=== PATIENT | male | born 1945 | race Caucasian/White ===

== ENCOUNTER 2024-09-01 10:36 | Outpatient (AMB) | payer MEDICARE, SELFPAY ==
--- NOTE | 2024-09-01 10:42 | MHC.OFFVIS ---
Vital Signs 09/01/24 10:43 Height 5 ft 7.48 in Weight 210 lb 8.663 oz BMI 32.5 BP 134/90 H Blood Pressure Location Rt brachial Position Sitting Pulse 55 Pulse Source Pulse Oximeter Pulse Oximetry (%) 97 Oxygen Delivery Method Room Air Intake Visit Reasons: gloria Allergies No Known Allergies Allergy (Verified 09/01/24 10:47) HPI Comments Details: The patient is here for pulmonary evaluation. The patient is a 79-year-old gentleman with known obstructive sleep apnea. He has had a history of sleep apnea for many years. He has been very adherent to the therapy. The CPAP therapy has been affecting beneficial. However, he has been struggling with the mask. Recently did get a an N30 I mask. Although is leaking from the sides. It seems to be the wrong size since he has a small wide fitting. I did have an N30 I air touch which may seal the little better because the different material. This comes in a medium. He did try for the lot comfortable. Therefore he will start using it. As far as his settings his current settings 6-13 cm to be effective for him. His AHI is 1.7. Seems like he needs a higher pressure just to improve that AHI little bit better but he does not want to increase the pressures at this time which is reasonable. In addition to that he has complaining of any earache. Feels like he is hearing an echo from his left ear. I did locate seems to be a bulging tympanic membrane with some fluid and some erythema. Looks to be infected. Also some erythema of the external canal. Therefore I will send some drops him some antibiotics but he needs to call his primary care and has some degree of follow-up for his ear this case likely component of otitis media and otitis externa. [facility] Medical History (Updated 09/01/24 @ 18:55 by Ajay Adkins MD) GLORIA on CPAP Social History (Updated 09/01/24 @ 10:46 by Jaylin Patton CMA) Patient Tobacco Use Status: Former Tobacco user Review of Systems Const Denies fever(s) Eyes Reports no additional complaints ENT Reports hearing loss Card Denies chest pain Resp Reports no additional complaints and Denies wheezing GI Reports no additional complaints Musc Reports no additional complaints Skin/Breast Denies rash Neuro Reports no additional complaints Too/Lymph Reports no additional complaints Aller/Immun Denies wheezing Physical Exam Vital Signs: Last Vital Signs Pulse 55 09/01/24 10:43 BP 134/90 H 09/01/24 10:43 Pulse Ox 97 09/01/24 10:43 Oxygen Delivery Method Room Air 09/01/24 10:43 BMI result Body Mass Index 32.5 Const General: comfortable HEENT Ears: TM abnormal (left) bulging, wth effusion and with fluid behind the TM Neck Neck: Yes supple Chest Chest palpation & inspection: normal inspection of the chest Resp Effort & Inspection: normal respiratory effort Auscultation: clear to auscultation bilaterally Cardio Heart sounds: S1 normal heart sound present and S2 normal heart sound present GI Palpation (GI): Soft to palpation Skin General skin exam: no rashes or lesions noted Extrem General: Yes no clubbing, cyanosis or edema Assessment & Plan Assessment & Plan (1) GLORIA on CPAP: Code(s): G47.33 - Obstructive sleep apnea (adult) (pediatric) Category: Medical (2) Otitis media: Code(s): H66.90 - Otitis media, unspecified, unspecified ear Category: Medical Qualifiers: Otitis media type: unspecified Chronicity: acute Qualified Code(s): H66.90 - Otitis media, unspecified, unspecified ear Plan continue APAP 6-13, trial N30 i med airtouch start Augmentin ear drops Needs to f/u with PCP or urgent case if no bettter re: otitis F/U 6 months Medications: New amoxicillin-pot clavulanate 875-125 mg 1 tab PO BID 20 tabs 0RF 10 days spaspmvo-xqlkja-UD-thonzonium 3.3-3-10-0.5 mg/mL (Cortisporin-TC) 4 drps otic (ear) left TID 10 mL 3RF 10 days Coding Level of Care Code New Pt Level 4 (71453) Diagnoses GLORIA on CPAP G47.33 Acute otitis media, unspecified otitis media type H66.90 Otitis media type: unspecified Chronicity: acute Time Spent (min) 30
[2024-09-01 10:43] VITALS: BP 134/90; PULSE 55; O2SAT 97; BMI 32.5
--- OUTSIDE RECORDS SUMMARY | 2024-09-01 11:17 | XMS_ITS ---
Author Organization [employer] Address [address] [place] [address] Care Team Providers Care Plastics Engineer Name Role Phone MYRA SANDS Primary Care Provider Allergies Allergen (clinical drug ingredient) Drug/Non Drug Allergy documented on EMR Reaction Allergy Type Onset Date Status levothyroxine Levothyroxine Sodium Unknown Drug Allergy Active REASON FOR VISIT CPE Medications Medication SIG (Take, Route, Frequency, Duration) Notes Start Date End Date Status Benzonatate 100 MG 1 capsule as needed Orally Three times a day for 7 days 04/16/2024 Not-Taking Paxlovid (300/100) 20 x 150 MG & 10 x 100MG 3 tablets Orally Twice a day for 5 days 04/16/2024 Not-Taking predniSONE 20 MG 1 tablet Orally Once a day for 7 days 03/16/2024 Not-Taking Atorvastatin Calcium 20 MG 1 tablet Orally Once a day for 90 days Active Dexcom G7 Sensor - as directed for 30 days 024 Not-Taking metFORMIN HCl 1000 MG TAKE 1 TABLET BY M OUTH TWICE DAILY WITH MEALS Orally twice a day for 90 days Active FUR FARMER Thyroid 60 MG TAKE 1 AND 1/2 TABLE TS BY MOUTH ON AN EMPTY STOMACH ONCE DAILY for 90 Active FreeStyle Veronique 14 Day Sensor - USE DIRECTED CHANGE EVERY 14 DAYS for 28 Not-Taking Losartan Potassium 25 mg 1 tablet Orally Once a day for 30 days 06/17/2024 Active Losartan Potassium 50 MG 1 tablet Orally Once a day for 90 days Active FreeStyle Veronique 14 Day [place] - as directed Use to monitor blood sugars daily E11.8 09/10/2020 Not-Taking Ibuprofen 400 MG 1 tablet with food o r milk as needed Orally every 6 hrs Not-Taking Gabapentin 300 MG 1 capsule Orally Onc e a day for 30 days 03/24/2024 Not-Taking Gabapentin 100 MG 2 capsule Orally Onc e a day for 30 days 03/24/2024 Not-Taking Losartan Potassium 50 MG 1 tablet Orally Once a day for 30 days Not-Taking Social History Tobacco Use: Social History Observation Description Date Details (start date - stop date) Never Smoker NA - NA Tobacco Use/Smoking Question Answer Notes Are you a nonsmoker Alcohol Screen (Audit-C) Question Answer Notes Did you have a drink contain ing alcohol in the past year? Yes How often did you have a dri nk containing alcohol in the past year? 2 to 4 times a month (2 points) How many drinks did you have on a typical day when you were drinking in the past year? 1 or 2 drinks (0 point) Points 2 Interpretation Negative Vital Signs Temperature 96 degrees Fahrenheit 06/17/2024 Oximetry 95 % 06/17/2024 Heart Rate 45 /min 06/17/2024 Blood pressure systolic 142 mm Hg 06/17/20 24 Blood pressure diastolic 80 mm Hg 024 Weight 216 lbs 06/17/2024 BMI 33.35 kg/m2 06/17/2024 Height 67.48 in 06/17/2024 Encounters Encounter Location Date Provider Diagnosis [facility] [address] [id number] 06/17/2024 MYRA SANDS Encounter for genera l adult medical examination without abnormal findings Z00.00 ; Diabetes mellitus due to underlying condition with diabetic neuropathy, unspecified E08.40 ; Essential (primary) hypertension I10 ; Hypothyroidism, unspecified E03.9 ; Hyperlipidemia, unspecified E78.5 and Benign prostatic hyperplasia without lower urinary tract symptoms N40.0 Assessments Encounter Date Diagnosis (ICD Code) Assessment Notes Treatment Notes Treatment Clinical Notes Section Notes 06/17/2024 Encounter for general adult medical examination without abnormal findings (ICD-10 - Z00.00) Mr. Tejeda is a 78-year-old gentleman with DM2, hypertension, hyperlipidemia, BPH, hypothyroidism and GLORIA here for annual physical. Plan is as follows: Type II diabetes mellitus. A1c 7.2 Fasting sugars 157. He is on Metformin 1000 MG BID. He has seen an storage architect for the past year. Foot care discussed. check A1c. EKG is normal sinus rhythm at 43 bpm with no acute ST or T wave changes, no bundle-branch blocks, normal interests. Hypertension. His blood pressure is running high in the office today. Cut back on sodium intake. Advised appropriate hydration, cardio exercises and weight loss. Increase Losartan to 75 MG once a day. Advised for BP follow up in 2 weeks. Hyperlipidemia. Last lipid panel within normal limits. Continue Atorvastatin 20 MG OD Hypothyroidism. TSH running high. Continue FUR FARMER Thyroid 60 MG 1 tablet and half and advised to take it first thing in the morning on an empty stomach and repeat TSH and if it is still underactive we will go up on the dose. GLORIA. Stable on current settings Eye screening. He sees his storage architect regularly. Dental screening. He sees dentist regularly. He is Full Code and his Julieth is his HCP Blood work reviewed with patient and questions answered. Screening blood work before next appointment. General health concerns discussed with patient. Scribe services used to formulate this note under HIPAA compliance and under [place] law mandated for scribe services. Patient aware of service. Verbal consent and written consent taken from the patient. Patient understands and verbalizes understanding of the scribes services and all questions answered regarding scribes services. Patient agrees to use of scribes services. 06/17/2024 Diabetes mellitus due to underlying condition with diabetic neuropathy, unspecified (ICD-10 - E08.40) Mr. Tejeda is a 78-year-old gentleman with DM2, hypertension, hyperlipidemia, BPH, hypothyroidism and GLORIA here for annual physical. Plan is as follows: Type II diabetes mellitus. A1c 7.2 Fasting sugars 157. He is on Metformin 1000 MG BID. He has seen an storage architect for the past year. Foot care discussed. check A1c. EKG is normal sinus rhythm at 43 bpm with no acute ST or T wave changes, no bundle-branch blocks, normal interests. Hypertension. His blood pressure is running high in the office today. Cut back on sodium intake. Advised appropriate hydration, cardio exercises and weight loss. Increase Losartan to 75 MG once a day. Advised for BP follow up in 2 weeks. Hyperlipidemia. Last lipid panel within normal limits. Continue Atorvastatin 20 MG OD Hypothyroidism. TSH running high. Continue FUR FARMER Thyroid 60 MG 1 tablet and half and advised to take it first thing in the morning on an empty stomach and repeat TSH and if it is still underactive we will go up on the dose. GLORIA. Stable on current settings Eye screening. He sees his storage architect regularly. Dental screening. He sees dentist regularly. He is Full Code and his Julieth is his HCP Blood work reviewed with patient and questions answered. Screening blood work before next appointment. General health concerns discussed with patient. Scribe services used to formulate this note under HIPAA compliance and under [place] law mandated for scribe services. Patient aware of service. Verbal consent and written consent taken from the patient. Patient understands and verbalizes understanding of the scribes services and all questions answered regarding scribes services. Patient agrees to use of scribes services. 06/17/2024 Essential (primary) hypertension (ICD-10 - I10) Mr. Tejeda is a 78-year-old gentleman with DM2, hypertension, hyperlipidemia, BPH, hypothyroidism and GLORIA here for annual physical. Plan is as follows: Type II diabetes mellitus. A1c 7.2 Fasting sugars 157. He is on Metformin 1000 MG BID. He has seen an storage architect for the past year. Foot care discussed. check A1c. EKG is normal sinus rhythm at 43 bpm with no acute ST or T wave changes, no bundle-branch blocks, normal interests. Hypertension. His blood pressure is running high in the office today. Cut back on sodium intake. Advised appropriate hydration, cardio exercises and weight loss. Increase Losartan to 75 MG once a day. Advised for BP follow up in 2 weeks. Hyperlipidemia. Last lipid panel within normal limits. Continue Atorvastatin 20 MG OD Hypothyroidism. TSH running high. Continue FUR FARMER Thyroid 60 MG 1 tablet and half and advised to take it first thing in the morning on an empty stomach and repeat TSH and if it is still underactive we will go up on the dose. GLORIA. Stable on current settings Eye screening. He sees his storage architect regularly. Dental screening. He sees dentist regularly. He is Full Code and his Julieth is his HCP Blood work reviewed with patient and questions answered. Screening blood work before next appointment. General health concerns discussed with patient. Scribe services used to formulate this note under HIPAA compliance and under [place] law mandated for scribe services. Patient aware of service. Verbal consent and written consent taken from the patient. Patient understands and verbalizes understanding of the scribes services and all questions answered regarding scribes services. Patient agrees to use of scribes services. 06/17/2024 Hypothyroidism, unspecified (ICD-10 - E03.9) Mr. Tejeda is a 78-year-old gentleman with DM2, hypertension, hyperlipidemia, BPH, hypothyroidism and GLORIA here for annual physical. Plan is as follows: Type II diabetes mellitus. A1c 7.2 Fasting sugars 157. He is on Metformin 1000 MG BID. He has seen an storage architect for the past year. Foot care discussed. check A1c. EKG is normal sinus rhythm at 43 bpm with no acute ST or T wave changes, no bundle-branch blocks, normal interests. Hypertension. His blood pressure is running high in the office today. Cut back on sodium intake. Advised appropriate hydration, cardio exercises and weight loss. Increase Losartan to 75 MG once a day. Advised for BP follow up in 2 weeks. Hyperlipidemia. Last lipid panel within normal limits. Continue Atorvastatin 20 MG OD Hypothyroidism. TSH running high. Continue FUR FARMER Thyroid 60 MG 1 tablet and half and advised to take it first thing in the morning on an empty stomach and repeat TSH and if it is still underactive we will go up on the dose. GLORIA. Stable on current settings Eye screening. He sees his storage architect regularly. Dental screening. He sees dentist regularly. He is Full Code and his Julieth is his HCP Blood work reviewed with patient and questions answered. Screening blood work before next appointment. General health concerns discussed with patient. Scribe services used to formulate this note under HIPAA compliance and under [place] law mandated for scribe services. Patient aware of service. Verbal consent and written consent taken from the patient. Patient understands and verbalizes understanding of the scribes services and all questions answered regarding scribes services. Patient agrees to use of scribes services. 06/17/2024 Hyperlipidemia, unspecified (ICD-10 - E78.5) Mr. Tejeda is a 78-year-old gentleman with DM2, hypertension, hyperlipidemia, BPH, hypothyroidism and GLORIA here for annual physical. Plan is as follows: Type II diabetes mellitus. A1c 7.2 Fasting sugars 157. He is on Metformin 1000 MG BID. He has seen an storage architect for the past year. Foot care discussed. check A1c. EKG is normal sinus rhythm at 43 bpm with no acute ST or T wave changes, no bundle-branch blocks, normal interests. Hypertension. His blood pressure is running high in the office today. Cut back on sodium intake. Advised appropriate hydration, cardio exercises and weight loss. Increase Losartan to 75 MG once a day. Advised for BP follow up in 2 weeks. Hyperlipidemia. Last lipid panel within normal limits. Continue Atorvastatin 20 MG OD Hypothyroidism. TSH running high. Continue FUR FARMER Thyroid 60 MG 1 tablet and half and advised to take it first thing in the morning on an empty stomach and repeat TSH and if it is still underactive we will go up on the dose. GLORIA. Stable on current settings Eye screening. He sees his storage architect regularly. Dental screening. He sees dentist regularly. He is Full Code and his Julieth is his HCP Blood work reviewed with patient and questions answered. Screening blood work before next appointment. General health concerns discussed with patient. Scribe services used to formulate this note under HIPAA compliance and under [place] law mandated for scribe services. Patient aware of service. Verbal consent and written consent taken from the patient. Patient understands and verbalizes understanding of the scribes services and all questions answered regarding scribes services. Patient agrees to use of scribes services. 06/17/2024 Benign prostatic hyperplasia without lower urinary tract symptoms (ICD-10 - N40.0) Mr. Tejeda is a 78-year-old gentleman with DM2, hypertension, hyperlipidemia, BPH, hypothyroidism and GLORIA here for annual physical. Plan is as follows: Type II diabetes mellitus. A1c 7.2 Fasting sugars 157. He is on Metformin 1000 MG BID. He has seen an storage architect for the past year. Foot care discussed. check A1c. EKG is normal sinus rhythm at 43 bpm with no acute ST or T wave changes, no bundle-branch blocks, normal interests. Hypertension. His blood pressure is running high in the office today. Cut back on sodium intake. Advised appropriate hydration, cardio exercises and weight loss. Increase Losartan to 75 MG once a day. Advised for BP follow up in 2 weeks. Hyperlipidemia. Last lipid panel within normal limits. Continue Atorvastatin 20 MG OD Hypothyroidism. TSH running high. Continue FUR FARMER Thyroid 60 MG 1 tablet and half and advised to take it first thing in the morning on an empty stomach and repeat TSH and if it is still underactive we will go up on the dose. GLORIA. Stable on current settings Eye screening. He sees his storage architect regularly. Dental screening. He sees dentist regularly. He is Full Code and his Julieth is his HCP Blood work reviewed with patient and questions answered. Screening blood work before next appointment. General health concerns discussed with patient. Scribe services used to formulate this note under HIPAA compliance and under [place] law mandated for scribe services. Patient aware of service. Verbal consent and written consent taken from the patient. Patient understands and verbalizes understanding of the scribes services and all questions answered regarding scribes services. Patient agrees to use of scribes services. Plan Of Treatment Medication Medication Name Sig Start Date Stop Date Notes Losartan Potassium 25 mg 1 tablet Orally Once a day for 30 days 06/17/2024 Next Appt Details Follow Up: 2 Weeks- BP, Reas on: Provider Name:MYRA SANDS , 06/29/2025 10:00:00 AM, [address] [place] [address], [id number], Progress Notes * Juan TEJEDAOB: 7 (78 yo M)Acc No.[id number]:06/17/2024 Progress Notes Patient:?LOBO Ella Provider:?MYRA SANDS MD :1945???Age:78 Y???Sex:Male Farhan e:06/17/2024 Address:[address] [place], [place] [id number] Subjective: * Chief Complaints: * ???CPE * HPI: ???Depression Screening:?PHQ-9?Little interest or pleasure in doing things?Not at all ?Feeling down, depressed, or hopeless?Not at all ?Trouble falling or staying asleep, or sleeping too much?Several days ?Feeling tired or having little energy?Not at all ?Poor appetite or overeating?Not at all ?Feeling bad about yourself or that you are a failure, or have let yourself or your family down?Not at all ?Trouble concentrating on things, such as reading the newspaper or watching television?Not at all ?Moving or speaking so slowly that other people could have noticed; or the opposite, being so fidgety or restless that you have been moving around a lot more than usual?Not at all ?Thoughts that you would be better off or of hurting yourself in some way?Not at all ?Total Score?1 ?Interpretation?Minimal Depression ???Internal Medicine:?Mr. Tejeda is a 78-year-old gentleman with DM2, hypertension, hyperlipidemia, BPH, hypothyroidism and GLORIA here for annual physical. He is in his usual state of health. Vision and hearing are stable. He checks his blood sugars at home which are within reasonable limits. Denies any hypoglycemic episodes. He is physically active. He gained a pound since last visit. He does not appear anxious or depressed. He sleeps well on CPAP, appetite is good. No GI symptoms. He denies any other active issues or concerns. * ROS:?General/Constitutional:?Overall health?Good.?Change in appetite?denies.?Chills?denies.?Fever?denies.?Night sweats?denies.?Sleep disturbance?denies.?Weight gain?denies.?Weight loss?denies.?Neurologic:?Difficulty speaking?denies.?Dizziness?denies.?Gait abnormality?denies.?Headache?denies.?Loss of strength?denies.?Memory loss?denies.?Seizures?denies.?Tingling/Numbness?denies .?Ophthalmologic:?Blurred vision?denies.?Discharge?denies.?Dry eye?denies.?Red eye?denies.?ENT:?Change in Voice?Denies.?Cold Symptoms?Denies.?Cough?Denies.?Dizziness?Denies.?Nasal Congestion?Denies.?Otalgia?Denies.?postnasal drip?Denies.?Blocked ear?denies.?Nosebleed?denies.?Snoring?denies.?Cardiovascular:?Diaphoresis?Denies.?Pedal Edema?Denies.?PND (Paroxsymal nocturnal dyspnea)?Denies.?Chest pain?denies.?Difficulty laying flat?denies.?Dyspnea on exertion?denies.?Heart murmur?denies.?Orthopnea?denies.?Respiratory:?Snoring?denies.?Asthma?denies.?Cough?denies.?Shortness of breath with exertion?denies.?Sputum production?denies.?Wheezing?denies.?Gastrointestinal:?Change in bowel habits?denies.?Constipation?denies.?Decreased appetite?denies.?Diarrhea?denies.?Heartburn?denies.?Nausea?denies.?Vomiting?bill es.?Musculoskeletal:?tingling/numbness?Denies.?myalgias?Denies.?Joint Swelling?Denies.?extremeties?normal.?Arthritis?denies.?Back problems?denies.?Carpal tunnel?denies.?Joint stiffness?denies.?Muscle aches?denies.?Skin:?Bruising?Denies.?Eczema?denies.?Hair changes?denies.?Rash?denies.?Skin lesion(s)?denies.?Psychiatric:?Anxiety?denies.?Depressed mood?denies.?Difficulty sleeping?denies.?Nervous breakdown?denies.?Substance abuse?denies.? * Medical History:? * Surgical History:?marphillip mercadorober prakashlevon blown right ear drum hernia repair * Hospitalization/Major Diagno stic Procedure:?hernia repair * Family History:?Father: dece ased, coronary artery disease, diagnosed with Diabetes, Hypertension.?Mother: , rheumatoid arthritis, diagnosed with Diabetes, Hypertension.?Siblings: lung cancer, liver cancer, skin cancer, cancer, kidney.? * Social History:?Tobacco Use:?Tobacco Use/Smoking?Are you a?nonsmoker ???Drugs/Alcohol:?Drugs?Have you used drugs other than those for medical reasons in the past 12 months??No ?Alcohol Screen (Audit-C)?Did you have a drink containing alcohol in the past year??Yes ?How often did you have a drink containing alcohol in the past year??2 to 4 times a month (2 points) ?How many drinks did you have on a typical day when you were drinking in the past year??1 or 2 drinks (0 point) ?Points?2 ?Interpretation?Negative ???Miscellaneous:?Exercise: active for work. ?Marital status: . ?Occupation: Works full-time. * Medications:?TakingNP Thyroi d 60 MG Tablet TAKE 1 AND 1/2 TABLETS BY MOUTH ON AN EMPTY STOMACH ONCE DAILY metFORMIN HCl 1000 MG Tablet TAKE 1 TABLET BY MOUTH TWICE DAILY WITH MEALS Orally twice a day Losartan Potassium 50 MG Tablet 1 tablet Orally Once a day Atorvastatin Calcium 20 MG Tablet 1 tablet Orally Once a day Taking FUR FARMER Thyroid 60 MG Tablet TAKE 1 AND 1/2 TABLETS BY MOUTH ON AN EMPTY STOMACH ONCE DAILY Taking metFORMIN HCl 1000 MG Tablet TAKE 1 TABLET BY MOUTH TWICE DAILY WITH MEALS Orally twice a day Taking Losartan Potassium 50 MG Tablet 1 tablet Orally Once a day Taking Atorvastatin Calcium 20 MG Tablet 1 tablet Orally Once a day Not-TakingLosartan Potassium 50 MG Tablet 1 tablet Orally Once a day Gabapentin 100 MG Capsule 2 capsule Orally Once a day Gabapentin 300 MG Capsule 1 capsule Orally Once a day Ibuprofen 400 MG Tablet 1 tablet with food or milk as needed Orally every 6 hrs FreeStyle Veronique 14 Day [place] - Device as directed Use to monitor blood sugars daily E11.8 FreeStyle Veronique 14 Day Sensor - Miscellaneous USE DIRECTED CHANGE EVERY 14 DAYS Dexcom G7 Sensor - Miscellaneous as directed predniSONE 20 MG Tablet 1 tablet Orally Once a day Paxlovid (300/100) 20 x 150 MG & 10 x 100MG Tablet Therapy Pack 3 tablets Orally Twice a day Benzonatate 100 MG Capsule 1 capsule as needed Orally Three times a day Medication List reviewed and reconciled with the patientNot-Taking Losartan Potassium 50 MG Tablet 1 tablet Orally Once a day Not-Taking Gabapentin 100 MG Capsule 2 capsule Orally Once a day Not-Taking Gabapentin 300 MG Capsule 1 capsule Orally Once a day Not-Taking Ibuprofen 400 MG Tablet 1 tablet with food or milk as needed Orally every 6 hrs Not-Taking FreeStyle Veronique 14 Day [place] - Device as directed Use to monitor blood sugars daily E11.8 Not-Taking FreeStyle Veronique 14 Day Sensor - Miscellaneous USE DIRECTED CHANGE EVERY 14 DAYS Not-Taking Dexcom G7 Sensor - Miscellaneous as directed Not-Taking predniSONE 20 MG Tablet 1 tablet Orally Once a day Not-Taking Paxlovid (300/100) 20 x 150 MG & 10 x 100MG Tablet Therapy Pack 3 tablets Orally Twice a day Not-Taking Benzonatate 100 MG Capsule 1 capsule as needed Orally Three times a day Medication List reviewed and reconciled with the patient * Allergies:?Levothyroxine Sod ium: Allergyno[Allergies Verified] Objective: * Vitals:?Temp: 96 F, Oxygen s at %: 95 %, HR: 45 /min, BP: 142/80 mm Hg, Wt: 216 lbs, BMI: 33.35 Index, Ht: 67.48 in. * ???Past Orders: ???Lab:[id number] (Order Farhan e - 04/11/2024) (Collection Date & Time - 04/11/2024 05:22 PM) ? Value Reference Range ?TSH 9.610 H 0.450-4.500 - u IU/mL ???Lab:Hgb A1c with eAG Chastity [id number] (Order Date - 04/11/2024) (Collection Date & Time - 04/11/2024 05:22 PM) ? Value Reference Range ?Hemoglobin A1c 7.2 H 4.8-5 .6 - % ?Estim. Avg Glu (eAG) 160 - mg/dL ???Lab:LP+Non-HDL Cholestero [id number] (Order Date - 04/11/2024) (Collection Date & Time - 04/11/2024 05:22 PM) ? Value Reference Range ?Cholesterol, Total 162 1 00-199 - mg/dL ?Triglycerides 116 0-149 - mg/dL ?HDL Cholesterol 46 >39 - mg/dL ?VLDL Cholesterol [place] 21 5-40 - mg/dL ?LDL Chol Calc (NIH) 95 0-99 - mg/dL ?Non-HDL Cholesterol 116 0-129 - mg/dL ???Lab:Hemoglobin [id number] (Order Date - 03/24/2024) (Collection Date & Time - 04/11/2024 05:22 PM) ? Value Reference Range ?Hemoglobin A1c/ Hemoglobin total 7.2 H 4.8-5.6 - % ???Lab:Albumin/Creatinine Ra stanton,[id number] (Order Date - 03/24/2024) (Collection Date & Time - 04/11/2024 05:22 PM) ? Value Reference Range ?Creatinine, Urine 111.5 No t Estab. - mg/dL ?Albumin, Urine 77.3 Not E stab. - ug/mL ?Alb/Creat Ratio 69 H 0-29 - mg/g creat ???Lab:Comp. Metabolic Panel [id number] (Order Date - 03/24/2024) (Collection Date & Time - 04/11/2024 05:22 PM) ? Value Reference Range ?Glucose 157 H 70-99 - mg/d L ?BUN 13 8-27 - mg/dL ?Creatinine 1.00 0.76-1.27 - mg/dL ?BUN/Creatinine Ratio 13 10-24 - ?Sodium 140 134-144 - mmo l/L ?Potassium 3.9 3.5-5.2 - mmol/L ?Chloride 105 96-106 - mm ol/L ?Carbon Dioxide, Total 21 20-29 - mmol/L ?Calcium 9.9 8.6-10.2 - m g/dL ?Protein, Total 7.4 6.0-8 .5 - g/dL ?Albumin 4.3 3.8-4.8 - g/ dL ?Globulin, Total 3.1 1.5- 4.5 - g/dL ?Bilirubin, Total 0.4 0.0 -1.2 - mg/dL ?Alkaline Phosphatase 88 44-121 - IU/L ?AST (SGOT) 19 0-40 - IU /L ?ALT (SGPT) 24 0-44 - IU /L ?eGFR 78 >59 - mL/min/1. 73 * Examination: ???General Examination: ?Psychiatry?Normal.?GENERAL APPEARANCE:?Well developed, well nourished, in no acute distress.?MUSCULOSKELETAL:?Normal.?HEAD:?Normocephalic, atraumatic.?EYES:?Pupils equal, round, reactive to light and accommodation, sclera non-icteric.?NECK/THYROID:?Neck supple, full range of motion, no cervical lymphadenopathy.?SKIN:?Warm and dry, no suspicious lesions.?HEART:?08/29 systolic murmur heard at the sternal border.?LUNGS:?Normal.?BREASTS:?__.?ABDOMEN:?Soft, nontender, nondistended, bowel sounds present, normal.?EXTREMITIES:?SLR BL 70 degrees.?PERIPHERAL PULSES:?Normal.?NEUROLOGIC:?Nonfocal, appropriate motor strength normal upper and lower extremities, sensory exam intact.?FEMALE GENITOURINARY:?__.?MALE GENITOURINARY:?__.?PODIATRIC:?Normal.?Health Unit Coordinator? .?Diabetic Foot Exam: ?Appearance?normal appearance.?Light Touch Sensation?normal.?Sense of Vibration?normal.?Pulse: Posterior Tibial?+1.?Pulse: Dorsal Pedis?+1.?Hammer Toe?negative.?Tinea Pedis?negative.?Skin Changes?no skin breaks.? Assessment: * Assessment: 1.?Encounter for general mariah lt medical examination without abnormal findings - Z00.00 (Primary)???2.?Diabetes mellitus due to underlying condition with diabetic neuropathy, unspecified - E08.40???3.?Essential (primary) hypertension - I10???4.?Hypothyroidism, unspecified - E03.9???5.?Hyperlipidemia, unspecified - E78.5???6.?Benign prostatic hyperplasia without lower urinary tract symptoms - N40.0??? Mr. Tejeda is a 78-year-ol d gentleman with DM2, hypertension, hyperlipidemia, BPH, hypothyroidism and GLORIA here for annual physical. Plan is as follows: Type II diabetes mellitus. A1c 7.2 Fasting sugars 157. He is on Metformin 1000 MG BID. He has seen an storage architect for the past year. Foot care discussed. check A1c.? EKG is normal sinus rhythm at 43 bpm with no acute ST or T wave changes, no bundle-branch blocks, normal interests. Hypertension. His blood pressure is running high in the office today. Cut back on sodium intake. Advised appropriate hydration, cardio exercises and weight loss. Increase?Losartan to?75 MG once a day. Advised for BP follow up in 2 weeks. Hyperlipidemia. Last lipid panel within normal limits. Continue Atorvastatin 20 MG OD Hypothyroidism. TSH running high. Continue FUR FARMER Thyroid 60 MG 1 tablet and half?and advised to take it first thing in the morning on an empty stomach and repeat TSH and if it is still underactive we will go up on the dose. GLORIA. Stable on current settings Eye screening. He sees his storage architect regularly.? Dental screening. He sees dentist regularly.? He is Full Code and his Julieth is his HCP Blood work reviewed with patient and questions answered. Screening blood work before next appointment. General health concerns discussed with patient. Scribe services used to formulate this note under HIPAA compliance and under [place] law mandated for scribe services. Patient aware of service. Verbal consent and written consent taken from the patient. Patient understands and verbalizes understanding of the scribes services and all questions answered regarding scribes services. Patient agrees to use of scribes services. Plan: * Treatment: 2.?Essential (primary) hyper tension? Start Losartan Potassium Tablet, 25 mg, 1 tablet, Orally, Once a day, 30 days, 30 Tablet, Refills 5.?? 3.?Hypothyroidism, unspecifi ed?LAB: TSH+Free [id number] (Ordered for 06/17/2024) 4.?Hyperlipidemia, unspecifi ed?LAB: Lipid Panel-[id number] (Ordered for 06/17/2024) * Procedure Codes:?3077F SYST BP = 140 MM HG6 [id number] DIAST BP 80-89 MM [id number] ELECTROCARDIOGRAM, COMPLETE * Preventive Medicine:?FLU - NO COVID - NO TDAP - NO SHINGREX - NO PNEMONIA - NO COLONOSCOPY - NO EYE EXAM - YES, DRY PRONG DERM - NO. * Follow Up:?2 Weeks- BP * * Sign off status: Completed true * Provider:?MYRA SANDS MD Date:?06/17 Generated for Mian quintanilla/Constantine/eTransmitting on:?09/01/2024 11:17 AM EST History and Physical Notes * HPI (History of Present Illness) Category Sub-Category Detail Notes Category Not es Depression Screening PHQ-9 Little inte rest or pleasure in doing things: Not at all Feeling down, depressed, or hopeless: No t at all Trouble falling or staying asleep, or sl eeping too much: Several days Feeling tired or having little energy: N ot at all Poor appetite or overeating: Not at all Feeling bad about yourself o r that you are a failure, or have let yourself or your family down: Not at all Trouble concentrating on thi ngs, such as reading the newspaper or watching television: Not at all Moving or speaking so slowly that other people could have noticed; or the opposite, being so fidgety or restless that you have been moving around a lot more than usual: Not at all Thoughts that you would be b bin off or of hurting yourself in some way: Not at all Total Score: 1 Interpretation: Minimal Depression Internal Medicine Mr. Satinder patel is a 78-year-old gentleman with DM2, hypertension, hyperlipidemia, BPH, hypothyroidism and GLORIA here for annual physical. He is in his usual state of health. Vision and hearing are stable. He checks his blood sugars at home which are within reasonable limits. Denies any hypoglycemic episodes. He is physically active. He gained a pound since last visit. He does not appear anxious or depressed. He sleeps well on CPAP, appetite is good. No GI symptoms. He denies any other active issues or concerns. Examination Category Sub-Category Detail Notes Category Not es General Examination GENERAL APPEARANCE: Well dev eloped, well nourished, in no acute distress HEAD: Normocephalic, atrau matic EYES: Pupils equal, round, reactive to light and accommodation, sclera non-icteric NECK/THYROID: Neck supple, full ra nge of motion, no cervical lymphadenopathy HEART: 1/6 systolic murmur heard at the sternal border LUNGS: Normal ABDOMEN: Soft, nontender, non distended, bowel sounds present, normal NEUROLOGIC: Nonfocal, appropriat e motor strength normal upper and lower extremities, sensory exam intact SKIN: Warm and dry, no angelica picious lesions EXTREMITIES: SLR BL 70 degrees PERIPHERAL PULSES: Normal BREASTS: __ MUSCULOSKELETAL: Normal MALE GENITOURINARY: __ FEMALE GENITOURINARY: __ PODIATRIC: Normal Psychiatry Normal Health Unit Coordinator Diabetic Foot Exam Appearance normal appearance Light Touch Sensation normal Sense of Vibration normal Pulse: Posterior Tibial +1 Pulse: Dorsal Pedis +1 Hammer Toe negative Tinea Pedis negative Skin Changes no skin breaks
--- OUTSIDE RECORDS SUMMARY | 2024-09-01 11:17 | XMS_ITS ---
Author Organization [facility] Address [address] [place] [address] Care Team Providers Care Pattern Clerk Name Role Phone MYRA SANDS Primary Care Provider Reason For Referral Reason Evaluation and manag ement Diagnosis 1 Obstructive sleep ap tito (adult) (pediatric) (G47.33) Referral Organization [facility] Referring Provider First Name MYRA Referring Provider Last Name WICHO Referring Provider Speciality Internal M edicine Referred Provider Specialty Pulmonology General Notes Referral sent to [facility] - Office will call patient for scheduling., Genie Somers 07/05/2024 10:46:45 AM > Referral Priority Routine REASON FOR VISIT New Referral Request Encounters Encounter Location Date Provider Diagnosis [address] [address] 06/29/2024 MYRA SANDS Plan Of Treatment Referrals Referral Date Details 07/05/2024 07/05/2024, Evaluati on and management Next Appt Details Provider Name:MYRA SANDS , 06/29/2025 10:00:00 AM, [address] [place] [address], [place], [address], Progress Notes * Juan DIAMONDOB: 7 (78 yo M)Acc No.[id number]:06/29/2024 Patient:?ILEANAElla :1945???Age:78 Y???Sex:Male Address:[address], [place] [address] Subjective: * Chief Complaints: * ???New Referral Request * Medical History:? * Surgical History:? * Hospitalization/Major Diagno stic Procedure:? * Medications:? Objective: * Vitals:? * Physical Examination:? Assessment: Plan: * Treatment: * Procedure Codes:? * true * Date:? Generated for Mian quintanilla/Constantine/Mattismitting on:?09/01/2024 11:16 AM EST Consultation Request Notes Referral Date Referring Provider Referred Provider Not es 07/05/2024 MYRA SANDS , Evaluation and management
--- OUTSIDE RECORDS SUMMARY | 2024-09-01 11:17 | XMS_ITS ---
Author Organization [facility] Address [address] [facility] [address] [place] [address] Care Team Providers Care Executive Kitchen Manager Name Role Phone JORGEANDIE CavazosRENTERIA Primary Care Provider [phone] REASON FOR VISIT A1c Encounters Encounter Location Date Provider Diagnosis [facility] [address] [address] 06/24/2024 MYRA SANDS Diabetes mellitus du e to underlying condition with diabetic neuropathy, unspecified E08.40 and Hypothyroidism, unspecified E03.9 Assessments Encounter Date Diagnosis (ICD Code) Assessment Notes Treatment Notes Treatment Clinical Notes Section Notes 06/24/2024 Diabetes mellitus due to underlying condition with diabetic neuropathy, unspecified (ICD-10 - E08.40) 06/24/2024 Hypothyroidism, unspecified (ICD-10 - E03.9) Plan Of Treatment Pending Test Test Name Order Date TSH+Free [id number] 06/24/2024 Hemoglobin A1c 06/24/2024 Next Appt Details Provider Name:MYRA SANDS , 06/29/2025 10:00:00 AM, [address] [place] [address] [address], [place], [address], Progress Notes * Juan TEJEDAOB: 7 (78 yo M)Acc No.[id number]:06/24/2024 Patient:?ILEANARandeeen :1945???Age:78 Y???Sex:Male Address:[address], [place] [address] Subjective: * Chief Complaints: * ???A1c * Medical History:? * Surgical History:? * Hospitalization/Major Diagno stic Procedure:? * Medications:? Objective: * Vitals:? * Physical Examination:? Assessment: * Assessment: 1.?Diabetes mellitus due to underlying condition with diabetic neuropathy, unspecified - E08.40???2.?Hypothyroidism, unspecified - E03.9??? Plan: * Treatment: 2.?Hypothyroidism, unspecifi ed?LAB: TSH+Free [id number] * Procedure Codes:? * true * Date:? Generated for Mian quintanilla/Constantine/Mattismitting on:?09/01/2024 11:17 AM EST
--- OUTSIDE RECORDS SUMMARY | 2024-09-01 11:17 | XMS_ITS | Patient Health Record ---
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 Role Phone MYRA SANDS Primary Care Provider [phone] Carlos Olivares Unavailable [phone] Allergies Allergen (clinical drug ingredient) Drug/Non Drug Allergy documented on EMR Reaction Allergy Type Onset Date Status levothyroxine Levothyroxine Sodium Unknown Drug Allergy Active Results Component Value Reference Range Notes TSH WITH REFLEX TO FT4 Reviewed date:10/23/2023 09:12:01 AM Interpretation: Performing Lab:Testing performed or reported by [facility], a Service of [address] [address] Jitendra Cortez MD, Communications Program Manager [facility]# [id number] Notes/Report: TSH 5.88 (0.4-4.2) uIU/mL LIPID PANEL Reviewed date:10/17/2023 09:50:11 PM Interpretation: Performing Lab:Testing performed or reported by [facility], a Service of [address] [address] Jitendra Cortez MD, Communications Program Manager [facility]# [id number] Notes/Report: CHOLESTEROL, TOTAL 129 (<200) MG/DL TRIGLYCERIDE 88 (<150) MG/DL HDL CHOL 36 (>39) MG/DL LDL CHOLESTEROL, CALCULATED 75 (0-130) MG/DL NON HDL CHOLESTEROL (CALC) 93 (<160) MG/DL HEMOGLOBIN A1C WITH EST GLUC OSE Reviewed date:10/23/2023 09:11:53 AM Interpretation: Performing Lab:Testing performed or reported by [facility], a Service of [facility], [address] [place] [address] Jitendra Cortez MD, Communications Program Manager [facility]# [id number] Notes/Report: HEMOGLOBIN A1C 8.0 (4.0-5.6) % MONITORING: In known diabetic patients, hemoglobin A1c targets should be discussed with health care provider. DIAGNOSTIC USE: The [place] Diabetes Association (ADA) and the World Health Organization (WHO) recommend the use of HbA1c to diagnose diabetes using a threshold of 6.5%. Patients who have an HbA1c between 5.7% and 6.4% are considered at increased risk for developing diabetes in the future. CAUTION: Falsely low HbA1c results may be observed in patients with hemolytic anemia, homozygous forms of abnormal hemoglobin (e.g. SS, CC, SC), , recent blood loss or hemoglobin F greater than 7%. Fructosamine may be used as an alternate test in these cases. REFERENCE: ADA: Standards of Medical Care in Diabetes 2020, The Journal of Clinical and Applied Research and Education Volume 43, Supplement 1 ESTIMATED AVERAGE GLUCOSE 183 COMPREHENSIVE METABOLIC PANE L Reviewed date:10/17/2023 09:55:38 PM Interpretation: Performing Lab:Testing performed or reported by [facility], a Service of [facility], [address] [place] [address] Jitendra Cortez MD, Communications Program Manager [facility]# [id number] Notes/Report: GLUCOSE 160 (70-99) MG/DL BUN 16 (8-23) MG/DL CREATININE 1.0 (0.7-1.2) MG/DL SODIUM 142 (133-145) MMOL/L POTASSIUM 4.1 (3.6-5.2) MMOL/L CHLORIDE 107 (98-107) MMOL/L BICARBONATE 23 (22-29) MMOL/L ANION GAP 12 (4-17) ALBUMIN 4.4 (3.4-4.8) GM/DL CALCIUM 9.5 (8.6-10.5) MG/DL BILIRUBIN,TOTAL 0.7 (0-1.2) MG/DL TOTAL PROTEIN 7.5 (6.2-8.2) GM/DL AG RATIO 1.4 AST 22 (0-40) U/L ALK PHOS 89 (40-129) U/L ALT 26 (0-41) U/L ESTIMATED GFR CREATININE 81 Creatinine based estimated glomerular filtration (eGFR) in adults is calculated using the National Kidney Foundation recommended 2020 CKD-EPI equation. Estimates GFR from serum creatinine, age and sex. MICROALBUMIN, URINE Reviewed date:10/17/2023 12:28:32 PM Interpretation: Performing Lab:Testing performed or reported by [facility], a Service of [facility], [address] [place] [address] Jitendra Cortez MD, Communications Program Manager [facility]# [id number] Notes/Report: MICRO-ALBUMIN 90.0 (<20) MG/L The urine microalbumin test is designed to monitor renal function. When screening for Bence Fuller proteinuria, urine electrophoresis is recommended. MALB/CREAT RATIO 61.2 (0-20) MG/GM URINE CREAT FOR MICRO ALBUMIN 147.5 LP+Non-HDL Cholesterol-[id number] 5 Reviewed date:04/12/2024 03:28:13 PM Interpretation: Performing Lab:Oskar Ramey, [address] [place] [address], Phone - [phone], Director - Ashutosh Notes/Report: Cholesterol, Total 162 100-199 mg/dL Triglycerides 116 0-149 mg/dL HDL Cholesterol 46 >39 mg/dL VLDL Cholesterol Kings 21 5-40 mg/dL LDL Chol Calc (NIH) 95 0-99 mg/dL Non-HDL Cholesterol 116 0-129 mg/dL Hgb A1c with eAG Estimation- [id number] Reviewed date:04/13/2024 10:34:50 AM Interpretation: Performing Lab:StephanieMENA PRESTIGEjaspal Ramey, [address] [place] [address], [place], Phone - [phone], Director - Ashutosh Notes/Report: Hemoglobin A1c 7.2 4.8-5.6 % . Prediabetes: 5.7 - 6.4 Diabetes: >6.4 Glycemic control for adults with diabetes: <7.0 Estim. Avg Glu (eAG) 160 TSH-[id number] Reviewed date:04/13/2024 10:34:41 AM Interpretation: Performing Lab:Oskar Ramey, [facility], [place], Phone - [phone], Director - Ashutosh Notes/Report: TSH 9.610 0.450-4.500 uIU/mL T4, FREE Reviewed date:10/17/2023 09:48:54 PM Interpretation: Performing Lab:Testing performed or reported by [facility], a Service of [facility], [address] [place] [address] Jitendra Cortez MD, Communications Program Manager [facility]# [id number] Notes/Report: FREE T4 0.72 (0.70-1.80) NG/DL Glucose-[id number] Reviewed date:06/24/2024 07:43:23 AM Interpretation: Performing Lab:[facility], [facility] [place], Phone - [phone], Director - Ashutosh Notes/Report: Glucose 144 70-99 mg/dL TSH+Free [id number] Reviewed date:06/24/2024 07:43:25 AM Interpretation: Performing Lab:[facility] [place], Phone - [phone], Director - Ashutosh Notes/Report: TSH 1.040 0.450-4.500 uIU/mL T4,Free(Direct) 0.83 0.82-1.77 ng/dL Hemoglobin A2a-[id number] Reviewed date:06/24/2024 08:20:07 AM Interpretation: Performing Lab:[facility], [facility] [place], Phone - [phone], Director - Ashutosh Notes/Report: Hemoglobin A1c 6.9 4.8-5.6 % . Prediabetes: 5.7 - 6.4 Diabetes: >6.4 Glycemic control for adults with diabetes: <7.0 Lipid Panel-[id number] Reviewed date:06/24/2024 07:43:28 AM Interpretation: Performing Lab:[facility], Phone - [phone], Director - Ashutosh Notes/Report: Cholesterol, Total 149 100-199 mg/dL Triglycerides 139 0-149 mg/dL HDL Cholesterol 42 >39 mg/dL VLDL Cholesterol Kings 25 5-40 mg/dL LDL Chol Calc (NIH) 82 0-99 mg/dL Comp. Metabolic Panel (14)-3 Reviewed date:04/12/2024 10:25:46 PM Interpretation: Performing Lab:[facility] [place], Phone - [phone], Director - Ashutosh Notes/Report: Glucose 157 70-99 mg/dL BUN 13 8-27 mg/dL Creatinine 1.00 0.76-1.27 mg/dL eGFR 78 >59 mL/min/1.73 BUN/Creatinine Ratio 13 10-24 Sodium 140 134-144 mmol/L Potassium 3.9 3.5-5.2 mmol/L Chloride 105 96-106 mmol/L Carbon Dioxide, Total 21 20-29 mmol/L Calcium 9.9 8.6-10.2 mg/dL Protein, Total 7.4 6.0-8.5 g/dL Albumin 4.3 3.8-4.8 g/dL Globulin, Total 3.1 1.5-4.5 g/dL Bilirubin, Total 0.4 0.0-1.2 mg/dL Alkaline Phosphatase 88 44-121 IU/L AST (SGOT) 19 0-40 IU/L ALT (SGPT) 24 0-44 IU/L Albumin/Creatinine Ratio,Uri ne-[id number] Reviewed date:04/18/2024 10:53:53 AM Interpretation: Performing Lab:Lab[facility]NA PRESTIGEjaspal Ramey, [address] [facility], [place], Phone - [phone], Director - MDJodry Notes/Report: Creatinine, Urine 111.5 Not Estab. mg/dL Albumin, Urine 77.3 Not Estab. ug/mL Alb/Creat Ratio 69 0-29 mg/g creat Normal: 0 - 29 Moderately increased: 30 - 300 Severely increased: >300 Hemoglobin C2m-[id number] Reviewed date:04/18/2024 10:55:58 AM Interpretation: Performing Lab:[facility], [address] [facility], [place], Phone - [phone], Director - MDJodry Notes/Report: Hemoglobin A1c 7.2 4.8-5.6 % . Prediabetes: 5.7 - 6.4 Diabetes: >6.4 Glycemic control for adults with diabetes: <7.0 Reason For Referral Reason Evaluation and manag ement Diagnosis 1 Sciatica, right side (M54.31) Referral Organization [facility] Referring Provider First Name Carlos Referring Provider Last Name Marshall Referred Provider Specialty Physical The rapist General Notes Referral sent to [facility] in [place] - Dept will call patient for scheduling.Yonis Latraya 03/16/2024 03:30:33 PM > Referral Priority Urgent Reason Evaluation and manag ement - Physical therapy of 6 weeks 2 sessions per week. Effective on April 15 Diagnosis 1 Sciatica, right side (M54.31) Referral Organization [facility] Referring Provider First Name Carlos Referring Provider Last Name Marshall Referred Provider Specialty Physical The rapist General Notes Referral faxed to [facility] in [place] - Dept will call patient for scheduling.Yonis Latraya 03/24/2024 02:49:17 PM > Referral Priority Routine Reason Evaluation and manag ement Diagnosis 1 Obstructive sleep ap tito (adult) (pediatric) (G47.33) Referral Organization [facility] Referring Provider First Name MYRA Referring Provider Last Name WICHO Referring Provider Speciality Internal M edicine Referred Provider Specialty Pulmonology General Notes Referral sent to [facility] - Office will call patient for scheduling., Genie Somers 07/05/2024 10:46:45 AM > Referral Priority Routine Medications Medication SIG (Take, Route, Frequency, Duration) Notes Start Date End Date Status metFORMIN HCl 1000 MG TAKE 1 TABLET BY M OUT TWICE DAILY WITH MEALS Orally twice a day for 90 days Active TOOLS PROGRAMMER Thyroid 60 MG TAKE 1 AND 1/2 TABLE TS BY MOUTH ON AN EMPTY STOMACH ONCE DAILY for 90 Active FreeStyle Veronique 14 Day Sensor - USE DIRECTED CHANGE EVERY 14 DAYS for 28 Not-Taking FreeStyle Veronique 14 Day Weinert - as directed Use to monitor blood sugars daily E11.8 09/10/2020 Not-Taking Ibuprofen 400 MG 1 tablet with food o r milk as needed Orally every 6 hrs Not-Taking Gabapentin 300 MG 1 capsule Orally Onc e a day for 30 days 03/24/2024 Not-Taking Benzonatate 100 MG 1 capsule as needed Orally Three times a day for 7 days 04/16/2024 Not-Taking Gabapentin 100 MG 2 capsule Orally Onc e a day for 30 days 03/24/2024 Not-Taking Paxlovid (300/100) 20 x 150 MG & 10 x 100MG 3 tablets Orally Twice a day for 5 days 04/16/2024 Not-Taking Losartan Potassium 50 MG 1 tablet Orally Once a day for 30 days Not-Taking predniSONE 20 MG 1 tablet Orally Once a day for 7 days 03/16/2024 Not-Taking Losartan Potassium 25 mg 1 tablet Orally Once a day for 30 days 06/17/2024 Active Dexcom G7 Sensor - as directed for 30 days 024 Not-Taking Losartan Potassium 50 MG 1 tablet Orally Once a day for 90 days Active Atorvastatin Calcium 20 MG 1 tablet Orally Once a day for 90 days Active Immunizations Vaccine Route Administration Date Status Comme nts COVID Unknown 11/17/2020 Administered 1st moderna COVID Unknown 12/15/2020 Administered 2nd moderna COVID Unknown 08/15/2021 Administered booster Social History Tobacco Use: Social History Observation [...] drinks (0 point) Points 2 Interpretation Negative Problems Problem Type SNOMED Code ICD Code Onset Dates Problem Status W/U Status Risk Notes Problem Hypothyroidism (86657966) Hypothyroidism, unspecified (E03.9) Active confirmed Problem Diabetic neuropathy (629049336) Diabetes mellitus due to underlying condition with diabetic neuropathy, unspecified (E08.40) Active confirmed Problem Hyperlipidemia (49706121) Hyperlipidemia, unspecified (E78.5) Active confirmed Problem Obstructive sleep apnea syndrome (disorder) (99235814) Obstructive sleep apnea (adult) (pediatric) (G47.33) Active confirmed Problem Right side sciatica (237154717074831) Sciatica, right side (M54.31) Active confirmed Problem Cardiac murmur, unspecified (R01.1) Active confirmed Problem Adult health examination (163188163) Encounter for general adult medical examination without abnormal findings (Z00.00) Active confirmed Problem Essential hypertension (81268323) Essential (primary) hypertension (I10) Active confirmed Problem Benign prostatic hypertrophy without outflow obstruction (834249119) Benign prostatic hyperplasia without lower urinary tract symptoms (N40.0) Active confirmed Vital Signs Heart Rate 45 /min 06/17/2024 Temperature 96 degrees Fahrenheit 06/17/2024 Oximetry 95 % 06/17/2024 Blood pressure diastolic 80 mm Hg 06/17/2024 Height 67.48 in 06/17/2024 Blood pressure systolic 142 mm Hg 06/17/2024 Weight 216 lbs 06/17/2024 BMI 33.35 kg/m2 06/17/2024 Encounters Encounter Location Date Provider Diagnosis [facility] [address] [place] [address] 09/17/2023 [facility] [address] [place] [address] 10/16/2023 [facility] [address] [place] [address] 10/23/2023 [facility] [address] [place] [address] 11/03/2023 [facility] [address] [place] [address] 04/14/2024 [facility] [address] [place] [address] 04/16/2024 [facility] [address] [place] [address] 06/24/2024 [facility] Diabetes mellitus du e to underlying condition with diabetic neuropathy, unspecified E08.40 and Hypothyroidism, unspecified E03.9 [facility] [address] [place] [address] 03/13/2024 [facility] [address] [place] [address] 03/13/2024 [facility] [address] [place] [address] 03/18/2024 [facility] [address] [place] [address] 03/21/2024 [facility] [address] [place] [address] 03/22/2024 [facility]ENTER[facility] G[facility] [address] [place] [address] 06/29/[address] [place] [address] 06/17/2024 [facility] Encounter for genera l adult medical examination without abnormal findings Z00.00 ; Diabetes mellitus due to underlying condition with diabetic neuropathy, unspecified E08.40 ; Essential (primary) hypertension I10 ; Hypothyroidism, unspecified E03.9 ; Hyperlipidemia, unspecified E78.5 and Benign prostatic hyperplasia without lower urinary tract symptoms N40.[address] [place] [address] 03/24/2024 Ghadeer Mazloum Essential (primary) hypertension I10 ; Diabetes mellitus due to underlying condition with diabetic neuropathy, unspecified E08.40 and Sciatica, right side M54.[address] [address] 10/23/2023 [facility] Hyperlipidemia, unspecified E78.5 ; Diabetes mellitus due to underlying condition with diabetic neuropathy, unspecified E08.40 and Hypothyroidism, unspecified E03.[address] [address] 03/16/2024 Ghadeer Mazloum Essential (primary) hypertension I10 ; Sciatica, right side M54.31 and Diabetes mellitus due to underlying condition with diabetic neuropathy, unspecified E08.40 Assessments Encounter Date Diagnosis (ICD Code) Assessment Notes Treatment Notes Treatment Clinical Notes Section Notes 10/23/2023 Diabetes mellitus due to underlying condition with diabetic neuropathy, unspecified (ICD-10 - E08.40) Mr. Tejeda is a 78-year-old gentleman with DM2, hypertension, hyperlipidemia, BPH, hypothyroidism and GLORIA here for follow up. Plan is as follows: Type II diabetes mellitus with neuropathy. Last A1c increased from 7.3 to 8. No strict sugar control at his age and goal A1c is less than 8. Increase Metformin to 1000 twice a day and dietary restrictions. His goal blood sugars is less than 130 in the morning and postprandial less than 180. He has seen his vp scientific in the past 1 year. Foot care discussed. Check A1c in 3 months. Hyperlipidemia. Triglycerides 160. Continue Atorvastatin 20 MG at night. Hypothyroidism. Continue TOOLS PROGRAMMER Thyroid daily. Check thyroid functions in 3 months. GLORIA. He sleeps well on CPAP. Class 1 obesity. He lost 2 lbs since last visit. Advised dietary restrictions and regimental exercise. Goal is to lose 5-6 lbs a month. Blood work reviewed with patient and questions answered. Screening blood work before next appointment. General health concerns discussed with patient. Scribe services used to formulate this note under HIPAA compliance and under [place] law mandated for scribe services. Patient aware of service. Verbal consent and written consent taken from the patient. Patient understands and verbalizes understanding of the scribes services and all questions answered regarding scribes services. Patient agrees to use of scribes services. 03/16/2024 Essential (primary) hypertension (ICD-10 - I10) Mr. Tejeda is a 78-year-old gentleman with DM2, hypertension, hyperlipidemia, BPH, hypothyroidism and GLORIA here for back pain. Plan as follows: Sciatica, right side: - Right low back pain radiates down to the darnell. Tender to palpate low back. Normal strength and sensation. No red flag symptoms. SLR test 60 degrees BL. It has been evaluated at the Urgent care. Patient is still finishing up with methocarbamol. Started him on low dose gabapentin and short course of steriod. He can also take Tylenol as needed. He has a referral to orthopedic from the urgent care for further evaluation and pain management. Referred to physical therapy. HTN: Blood pressure is noted to be running high today. I increased losartan to 50mg and we will follow-back in 1 week. Advised on avoiding salt. DM: Recent A1c is 8.0 was 7.3. Patient has not been compliant with diet modification. Discussed adding another medication like insulin or GLP-1. He defers for now and would like to modify diet first. We will repeat A1c in 3 months. I have rendered the services for this patient under direct supervision of Dr. Sands, who did not see the patient but was available upon request Nothing in the differential warrants any red flag symptoms, but the patient was informed that should they develop any new or worsening of symptoms they need to go to the ER immediately. 03/16/2024 Sciatica, right side (ICD-10 - M54.31) Mr. Tejeda is a 78-year-old gentleman with DM2, hypertension, hyperlipidemia, BPH, hypothyroidism and GLORIA here for back pain. Plan as follows: Sciatica, right side: - Right low back pain radiates down to the darnell. Tender to palpate low back. Normal strength and sensation. No red flag symptoms. SLR test 60 degrees BL. It has been evaluated at the Urgent care. Patient is still finishing up with methocarbamol. Started him on low dose gabapentin and short course of steriod. He can also take Tylenol as needed. He has a referral to orthopedic from the urgent care for further evaluation and pain management. Referred to physical therapy. HTN: Blood pressure is noted to be running high today. I increased losartan to 50mg and we will follow-back in 1 week. Advised on avoiding salt. DM: Recent A1c is 8.0 was 7.3. Patient has not been compliant with diet modification. Discussed adding another medication like insulin or GLP-1. He defers for now and would like to modify diet first. We will repeat A1c in 3 months. I have rendered the services for this patient under direct supervision of Dr. Sands, who did not see the patient but was available upon request Nothing in the differential warrants any red flag symptoms, but the patient was informed that should they develop any new or worsening of symptoms they need to go to the ER immediately. 10/23/2023 Hyperlipidemia, unspecified (ICD-10 - E78.5) Mr. Tejeda is a 78-year-old gentleman with DM2, hypertension, hyperlipidemia, BPH, hypothyroidism and GLORIA here for follow up. Plan is as follows: Type II diabetes mellitus with neuropathy. Last A1c increased from 7.3 to 8. No strict sugar control at his age and goal A1c is less than 8. Increase Metformin to 1000 twice a day and dietary restrictions. His goal blood sugars is less than 130 in the morning and postprandial less than 180. He has seen his vp scientific in the past 1 year. Foot care discussed. Check A1c in 3 months. Hyperlipidemia. Triglycerides 160. Continue Atorvastatin 20 MG at night. Hypothyroidism. Continue TOOLS PROGRAMMER Thyroid daily. Check thyroid functions in 3 months. GLORIA. He sleeps well on CPAP. Class 1 obesity. He lost 2 lbs since last visit. Advised dietary restrictions and regimental exercise. Goal is to lose 5-6 lbs a month. Blood work reviewed with patient and questions answered. Screening blood work before next appointment. General health concerns discussed with patient. Scribe services used to formulate this note under HIPAA compliance and under [place] law mandated for scribe services. Patient aware of service. Verbal consent and written consent taken from the patient. Patient understands and verbalizes understanding of the scribes services and all questions answered regarding scribes services. Patient agrees to use of scribes services. 03/24/2024 Essential (primary) hypertension (ICD-10 - I10) Mr. Tejeda is a 78-year-old gentleman with DM2, hypertension, hyperlipidemia, BPH, hypothyroidism and GLORIA here for back pain. Plan as follows: HTN: -Blood pressure is noted to be running high today. We have initially increased Losartan to 50mg. BP could be elevated due to recent steriod treatment. We alina recheck BP after patient comes back from vacation. -Advised on avoiding salt. Sciatica: - We have increased gabapentin to 300mg. Referred to PT. He has a referral to orthopedic. DM: Recent A1c is 8.0 was 7.3. Patient has not been compliant with diet modification. Discussed adding another medication like insulin or GLP-1. He defers for now and would like to modify diet first. -We will repeat A1c in 3 months. Patient seen and examined with PA. Agree with the above mentioned assessment and plan 03/24/2024 Diabetes mellitus due to underlying condition with diabetic neuropathy, unspecified (ICD-10 - E08.40) Mr. Tejeda is a 78-year-old gentleman with DM2, hypertension, hyperlipidemia, BPH, hypothyroidism and GLORIA here for back pain. Plan as follows: HTN: -Blood pressure is noted to be running high today. We have initially increased Losartan to 50mg. BP could be elevated due to recent steriod treatment. We alina recheck BP after patient comes back from vacation. -Advised on avoiding salt. Sciatica: - We have increased gabapentin to 300mg. Referred to PT. He has a referral to orthopedic. DM: Recent A1c is 8.0 was 7.3. Patient has not been compliant with diet modification. Discussed adding another medication like insulin or GLP-1. He defers for now and would like to modify diet first. -We will repeat A1c in 3 months. Patient seen and examined with PA. Agree with the above mentioned assessment and plan 06/17/2024 Encounter for general adult medical examination without abnormal findings (ICD-10 - Z00.00) Mr. Tejeda is a 78-year-old gentleman with DM2, hypertension, hyperlipidemia, BPH, hypothyroidism and GLORIA here for annual physical. Plan is as follows: Type II diabetes mellitus. A1c 7.2 Fasting sugars 157. He is on Metformin 1000 MG BID. He has seen an vp scientific for the past year. Foot care discussed. [...] MG OD Hypothyroidism. TSH running high. Continue TOOLS PROGRAMMER Thyroid 60 MG 1 tablet and half and advised to take it first thing in the morning on an empty stomach and repeat TSH and if it is still underactive we will go up on the dose. GLORIA. Stable on current settings Eye screening. He sees his vp scientific regularly. Dental screening. He sees dentist regularly. He is Full Code and his Julieth is his HCP Blood work reviewed with patient and questions answered. Screening blood work before next appointment. General health concerns discussed with patient. Scribe services used to formulate this note under HIPAA compliance and under [place] law mandated for scribe services. Patient aware [...] 1000 MG BID. He has seen an vp scientific for the past year. Foot care discussed. [...] MG OD Hypothyroidism. TSH running high. Continue TOOLS PROGRAMMER Thyroid 60 MG 1 tablet and half and advised to take it first thing in the morning on an empty stomach and repeat TSH and if it is still underactive we will go up on the dose. GLORIA. Stable on current settings Eye screening. He sees his vp scientific regularly. Dental screening. He sees dentist regularly. He is Full Code and his Julieth is his HCP Blood work reviewed with patient and questions answered. Screening blood work before next appointment. General health concerns discussed with patient. Scribe services used to formulate this note under HIPAA compliance and under [place] law mandated for scribe services. Patient aware of service. Verbal consent and written consent taken from the patient. Patient understands and verbalizes understanding of the scribes services and all questions answered regarding scribes services. Patient agrees to use of scribes services. 06/24/2024 Diabetes mellitus due to underlying condition with diabetic neuropathy, unspecified (ICD-10 - E08.40) 06/24/2024 Hypothyroidism, unspecified (ICD-10 - E03.9) 06/17/2024 Essential (primary) hypertension (ICD-10 - I10) Mr. Tejeda is a 78-year-old gentleman with DM2, hypertension, hyperlipidemia, BPH, hypothyroidism and GLORIA here for annual physical. Plan is as follows: Type II diabetes mellitus. A1c 7.2 Fasting sugars 157. He is on Metformin 1000 MG BID. He has seen an vp scientific for the past year. Foot care discussed. [...] MG OD Hypothyroidism. TSH running high. Continue TOOLS PROGRAMMER Thyroid 60 MG 1 tablet and half and advised to take it first thing in the morning on an empty stomach and repeat TSH and if it is still underactive we will go up on the dose. GLORIA. Stable on current settings Eye screening. He sees his vp scientific regularly. Dental screening. He sees dentist regularly. He is Full Code and his Julieth is his HCP Blood work reviewed with patient and questions answered. Screening blood work before next appointment. General health concerns discussed with patient. Scribe services used to formulate this note under HIPAA compliance and under [place] law mandated for scribe services. Patient aware of service. Verbal consent and written consent taken from the patient. Patient understands and verbalizes understanding of the scribes services and all questions answered regarding scribes services. Patient agrees to use of scribes services. 03/24/2024 Sciatica, right side (ICD-10 - M54.31) Mr. Tejeda is a 78-year-old gentleman with DM2, hypertension, hyperlipidemia, BPH, hypothyroidism and GLORIA here for back pain. Plan as follows: HTN: -Blood pressure is noted to be running high today. We have initially increased Losartan to 50mg. BP could be elevated due to recent steriod treatment. We alina recheck BP after patient comes back from vacation. -Advised on avoiding salt. Sciatica: - We have increased gabapentin to 300mg. Referred to PT. He has a referral to orthopedic. DM: Recent A1c is 8.0 was 7.3. Patient has not been compliant with diet modification. Discussed adding another medication like insulin or GLP-1. He defers for now and would like to modify diet first. -We will repeat A1c in 3 months. Patient seen and examined with PA. Agree with the above mentioned assessment and plan 10/23/2023 Hypothyroidism, unspecified (ICD-10 - E03.9) Mr. Tejeda is a 78-year-old gentleman with DM2, hypertension, hyperlipidemia, BPH, hypothyroidism and GLORIA here for follow up. Plan is as follows: Type II diabetes mellitus with neuropathy. Last A1c increased from 7.3 to 8. No strict sugar control at his age and goal A1c is less than 8. Increase Metformin to 1000 twice a day and dietary restrictions. His goal blood sugars is less than 130 in the morning and postprandial less than 180. He has seen his vp scientific in the past 1 year. Foot care discussed. Check A1c in 3 months. Hyperlipidemia. Triglycerides 160. Continue Atorvastatin 20 MG at night. Hypothyroidism. Continue TOOLS PROGRAMMER Thyroid daily. Check thyroid functions in 3 months. GLORIA. He sleeps well on CPAP. Class 1 obesity. He lost 2 lbs since last visit. Advised dietary restrictions and regimental exercise. Goal is to lose 5-6 lbs a month. Blood work reviewed with patient and questions answered. Screening blood work before next appointment. General health concerns discussed with patient. Scribe services used to formulate this note under HIPAA compliance and under [place] law mandated for scribe services. Patient aware of service. Verbal consent and written consent taken from the patient. Patient understands and verbalizes understanding of the scribes services and all questions answered regarding scribes services. Patient agrees to use of scribes services. 03/16/2024 Diabetes mellitus due to underlying condition with diabetic neuropathy, unspecified (ICD-10 - E08.40) Mr. Tejeda is a 78-year-old gentleman with DM2, hypertension, hyperlipidemia, BPH, hypothyroidism and GLORIA here for back pain. Plan as follows: Sciatica, right side: - Right low back pain radiates down to the darnell. Tender to palpate low back. Normal strength and sensation. No red flag symptoms. SLR test 60 degrees BL. It has been evaluated at the Urgent care. Patient is still finishing up with methocarbamol. Started him on low dose gabapentin and short course of steriod. He can also take Tylenol as needed. He has a referral to orthopedic from the urgent care for further evaluation and pain management. Referred to physical therapy. HTN: Blood pressure is noted to be running high today. I increased losartan to 50mg and we will follow-back in 1 week. Advised on avoiding salt. DM: Recent A1c is 8.0 was 7.3. Patient has not been compliant with diet modification. Discussed adding another medication like insulin or GLP-1. He defers for now and would like to modify diet first. We will repeat A1c in 3 months. I have rendered the services for this patient under direct supervision of Dr. Sands, who did not see the patient but was available upon request Nothing in the differential warrants any red flag symptoms, but the patient was informed that should they develop any new or worsening of symptoms they need to go to the ER immediately. 06/17/2024 Hypothyroidism, unspecified (ICD-10 - E03.9) Mr. Tejeda is a 78-year-old gentleman with DM2, hypertension, hyperlipidemia, BPH, hypothyroidism and GLORIA here for annual physical. Plan is as follows: Type II diabetes mellitus. A1c 7.2 Fasting sugars 157. He is on Metformin 1000 MG BID. He has seen an vp scientific for the past year. Foot care discussed. [...] MG OD Hypothyroidism. TSH running high. Continue TOOLS PROGRAMMER Thyroid 60 MG 1 tablet and half and advised to take it first thing in the morning on an empty stomach and repeat TSH and if it is still underactive we will go up on the dose. GLORIA. Stable on current settings Eye screening. He sees his vp scientific regularly. Dental screening. He sees dentist regularly. He is Full Code and his Julieth is his HCP Blood work reviewed with patient and questions answered. Screening blood work before next appointment. General health concerns discussed with patient. Scribe services used to formulate this note under HIPAA compliance and under [place] law mandated for scribe services. Patient aware [...] 1000 MG BID. He has seen an vp scientific for the past year. Foot care discussed. [...] MG OD Hypothyroidism. TSH running high. Continue TOOLS PROGRAMMER Thyroid 60 MG 1 tablet and half and advised to take it first thing in the morning on an empty stomach and repeat TSH and if it is still underactive we will go up on the dose. GLORIA. Stable on current settings Eye screening. He sees his vp scientific regularly. Dental screening. He sees dentist regularly. He is Full Code and his Julieth is his HCP Blood work reviewed with patient and questions answered. Screening blood work before next appointment. General health concerns discussed with patient. Scribe services used to formulate this note under HIPAA compliance and under [place] law mandated for scribe services. Patient aware [...] 1000 MG BID. He has seen an vp scientific for the past year. Foot care discussed. [...] MG OD Hypothyroidism. TSH running high. Continue TOOLS PROGRAMMER Thyroid 60 MG 1 tablet and half and advised to take it first thing in the morning on an empty stomach and repeat TSH and if it is still underactive we will go up on the dose. GLORIA. Stable on current settings Eye screening. He sees his vp scientific regularly. Dental screening. He sees dentist regularly. He is Full Code and his Julieth is his HCP Blood work reviewed with patient and questions answered. Screening blood work before next appointment. General health concerns discussed with patient. Scribe services used to formulate this note under HIPAA compliance and under [place] law mandated for scribe services. Patient aware of service. Verbal consent and written consent taken from the patient. Patient understands and verbalizes understanding of the scribes services and all questions answered regarding scribes services. Patient agrees to use of scribes services. Plan Of Treatment Pending Test Test Name Order Date X ray : Foot, left 3v 06/01/2019 COMPREHENSIVE METABOLIC PANEL 05/29/2022 COMPREHENSIVE METABOLIC PANEL 04/17/2022 HEMOGLOBIN A1C 04/17/2022 HEMOGLOBIN A1C WITH EST GLUCOSE 05/29/20 22 HEMOGLOBIN A1C WITH EST GLUCOSE 04/24/20 23 LIPID PANEL 05/29/2022 LIPID PANEL 04/17/2022 MICROALBUMIN, URINE 04/24/2023 TSH WITH REFLEX TO FT4 05/29/2022 TSH WITH REFLEX TO FT4 04/24/2023 URINALYSIS W/REFLEX CULTURE 03/31/2023 Hemoglobin A1C 10/12/2018 Lipid Panel 10/12/2018 Lipid Panel 11/29/2018 TSH 11/29/2018 Hgb A1c with eAG Estimation-[id number] 03/16 TSH+Free [id number] 06/24/2024 Hemoglobin A1c 06/24/2024 Next Appt Details Provider Name:MYRA SANDS , 06/29/2025 10:00:00 AM, [address] [place] [address], [id number], Insurance Providers Payer Name Payer Address Payer Phone Subscriber Number Group Number Insured Name Patient Relationship to Insured Coverage Start Date Coverage End Date [employer] [address] [place] [phone] [id number] Ella Tejeda Self - patient is the insured Medical (General) History Medical History History ICD Code Benign prostatic hyperplasia without low er urinary tract symptoms N40.0 Hyperlipidemia, unspecified E78.5 Hypothyroidism, unspecified E03.9 Impaired fasting glucose R73.01 Mild cognitive impairment, so stated G31 .84 Obstructive sleep apnea (adult) (pediatr ic) G47.33 Retinal hemorrhage, unspecified eye H35. 60 Zoster without complications B02.9 Personal history of COVID-19 Surgical History Surgery Date(Month/Year) lasik bilateral blown right ear drum hernia repair Hospitalization History Reason Date(Month/Year) hernia repair
== END 2024-09-01 11:12 | disposition home or self-care (01) ==
PROVIDERS: PCP Hospitalist; Visit Provider Hospitalist
DX: G47.33 Obstructive sleep apnea (adult) (pediatric) (principal); H66.90 Otitis media, unspecified, unspecified ear
CPT/HCPCS: 99204

== ENCOUNTER → 2024-09-01 10:36 | Outpatient (BNVA) | payer MEDICARE, SELFPAY | PROVIDERS: PCP Hospitalist; Visit Provider Hospitalist | DX: G47.33 Obstructive sleep apnea (adult) (pediatric) (principal); H66.90 Otitis media, unspecified, unspecified ear | CPT/HCPCS: 99202 ==